=== PATIENT | female | born 1935 | race Caucasian/White ===

== ENCOUNTER 2019-03-07 12:04 | Emergency (ER) | payer MEDICARE, OTHER, MEDICAID ==
[2019-03-07] MEDS: IBUPROFEN 200 MG TAB PO (13:16)
[2019-03-07] MEDS: ACETAMINOPHEN 325 MG TAB PO (13:16)
[2019-03-07] MEDS: DEXAMETHASONE 10 MG/ML 1 ML INJ IM (13:17)
== END 2019-03-07 13:45 | disposition home or self-care (01) ==
LOC: FTE 13:45
DX: M10.032 Idiopathic gout, left wrist (principal)
CPT/HCPCS: 73110; 73110-LT; 96372; 99284-25